=== PATIENT | male | born 1985 | race Caucasian/White ===

== ENCOUNTER → 2016-12-28 | Outpatient (CLI) | payer BC ==
[~2016-12-28] MED LIST: ACHD5005 PO; NAPR-243 PO; OMEP10CA4 PO; PANT40TA2 PO; SUCR1TAB36 PO; TRAM50TA2 PO
== END ==
LOC: PREOP 05:36
PROVIDERS: ATTEND Surgery
DX: Z01.818 Encounter for other preprocedural examination (principal); K21.9 Gastro-esophageal reflux disease without esophagitis

== ENCOUNTER 2017-01-02 08:25 | Day surgery (SDC) | payer BC ==
[~2017-01-02] VITALS: Ht 175.3 cm; Wt 95.3 kg
[~2017-01-02 08:25] MED LIST changes: +LACTATED RINGERS 1,000 ML IV ONE
[2017-01-02 08:30] VITALS: BP 133/94
--- OUTSIDE RECORDS SUMMARY | 2017-01-02 08:33 | XMS REPORT | Continuity of Care Document ---
Author Author [employer] Organization [employer] Address Unknown Phone Unavailable Care Team Providers Care Feller Seam Operator Name Role Phone [employer] Unavailable Unavailable Problems Medications Allergies, Adverse Reactions, Alerts Immunizations Results Vital Signs Encounters Procedures Plan of Care Social History Assessment and Plan Family History Value Date Source Advance Directives Order Name Results Value Date Source
--- OUTSIDE RECORDS SUMMARY | 2017-01-02 08:34 | XMS REPORT ---
Author Author LILIANA LEONARDO Organization [facility] Address [address] [place] [address] Care Team Providers Care Skilled Nursing Facilities Professional Name Role Phone LILIANA LEONARDO Unavailable PROBLEMS Type Condition ICD9-CM Code [id number] Code Onset Dates Condition Status SNOMED Code Problem Reflux gastritis K29.60 Active [id number] ALLERGIES Substance Reaction Event Type Date Status N.K.D.A. Unknown Non Drug Allergy Feb, Unknown SOCIAL HISTORY No smoking Hx information available PLAN OF CARE Activity Details Follow Up prn Reason: VITAL SIGNS Height 69 in 2016-02-21 Weight 214.0 lbs 2016-02-21 Temperature 97.7 degrees Fahrenheit 2016-02-21 Heart Rate 76 bpm 2016-02-21 Respiratory Rate 18 2016-02-21 BMI 31.60 kg/m2 2016-02-21 Blood pressure systolic 132 mmHg 2016-02-21 Blood pressure diastolic 84 mmHg 2016-02-21 MEDICATIONS Medication Instructions Dosage Frequency Start Date End Date Duration Status Carafate 1 GM Orally Twice a day 1 tablet on an empty stomach 12h Active Protonix 40 MG Orally Once a day 1 tablet 24h Active RESULTS No Results PROCEDURES Procedure Date Ordered Related Diagnosis Body Site Office Visit, Est Pt., Level 3 Feb 21, 2016 IMMUNIZATIONS No Known Immunizations
--- OUTSIDE RECORDS SUMMARY | 2017-01-02 08:34 | XMS REPORT ---
Author Author CHRISTY JAMES Organization [employer] Address Unknown Phone Unavailable Care Team Providers Care Strong Nitric Operator Name Role Phone CHRISTY JAMES CP Unavailable Allergies, Adverse Reactions, Alerts Substance Reaction Event Type N.K.D.A. Info Not Available Non Drug Allergy Problems Problem Type Condition Code Onset Dates Condition Status Assessment Gastroenteritis K52.9 Active Medications Medication Code System Code Instructions Start Date End Date Status Dosage Ranitidine HCl [facility] [address]-72 150 MG Orally Once a day 1 capsule at bedtime Zofran [facility] [address]-43 4 MG Orally every 8 hours, PRN Nov 22, 2015 1 tablet Procedures Procedure Coding System Code Date Office Visit, Est Pt., Level 3 CPT-4 43562 Nov 22, 2015 Vital Signs Date/Time: Nov 22, 2015 Cardiac Monitoring Heart Rate 60 bpm Weight 205.0 lbs Height 69 in BMI 30.27 Index Blood Pressure Diastolic 84 mmHg Blood Pressure Systolic 126 mmHg Results No Known Results Summary Purpose [employer] Submission
[2017-01-02] MEDS ORDERED: LACTATED RINGERS 1,000 ML IV STA (08:35)
--- OUTSIDE RECORDS SUMMARY | 2017-01-02 08:38 | XMS REPORT ---
Author Author MARCI MCCONNELL Organization [employer] Address Unknown Phone Unavailable Care Team Providers Care Pm Technician Name Role Phone MARCI MCCONNELL CP Unavailable Allergies, Adverse Reactions, Alerts Substance Reaction Event Type N.K.D.A. Info Not Available Non Drug Allergy Problems Problem Type Condition Code Onset Dates Condition Status Assessment Left foot pain M79.672 Active Assessment Reflux gastritis K29.60 Active Problem Reflux gastritis K29.60 Active Medications Medication Code System Code Instructions Start Date End Date Status Dosage Ranitidine HCl [facility] [address]-03 150 MG Orally Once a day 1 capsule at bedtime Omeprazole [facility] [address]-85 10 MG Orally Once a day Dec 06, 2015 1 capsules TraMADol HCl ER [facility] [address]-72 100 MG Orally BID Dec 06, 2015 1 tablet Procedures Procedure Coding System Code Date Office Visit, Est Pt., Level 4 CPT-4 16586 Dec 06, 2015 X-RAY EXAM OF FOOT CPT-4 01353 Dec 06, 2015 Vital Signs Date/Time: Dec 06, 2015 Cardiac Monitoring Heart Rate 70 bpm Weight 206 lbs Height 69 in BMI 30.42 Index Blood Pressure Diastolic 80 mmHg Blood Pressure Systolic 110 mmHg Results No Known Results Summary Purpose [employer] Submission
--- OUTSIDE RECORDS SUMMARY | 2017-01-02 08:40 | XMS REPORT | Continuity of Care Document ---
Author Author [facility] Organization [facility] Address Unknown Phone Unavailable Allergies Active Description Code Type Severity Reaction Onset Reported/Identified Relationship to Patient Clinical Status Yes No Known Drug Allergies [id number] Drug Allergy Unknown N/ A 01/03/2016 Medications Problems Date Dx Coded Attending Type Code Diagnosis Diagnosed By 06/11/2009 597.80 URETHRITIS, UNSPECIFIED 06/11/2009 LARRY PERKINS DO 597.80 URETHRITIS, UNSPECIFIED 06/11/2009 FEDE ABREU APRN 597.80 URETHRITIS, UNSPECIFIED 06/11/2009 LARRY PERKINS DO 597.80 URETHRITIS, UNSPECIFIED 09/20/2009 719.41 PAIN IN JOINT, SHOULDER REGION 09/20/2009 LARRY PERKINS DO 719.41 PAIN IN JOINT, SHOULDER REGION 09/20/2009 FEDE ABREU APRN 719.41 PAIN IN JOINT, SHOULDER REGION 09/20/2009 LARRY PERKINS DO 719.41 PAIN IN JOINT, SHOULDER REGION 10/14/2009 726.10 DISORDERS OF BURSAE AND TENDONS IN SHOULDER REGION, UNSPECIFIED 10/14/2009 LARRY PERKINS DO 726.10 DISORDERS OF BURSAE AND TENDONS IN SHOULDER REGION, UNSPECIFIED 10/14/2009 FEDE ABREU APRN 726.10 DISORDERS OF BURSAE AND TENDONS IN SHOULDER REGION, UNSPECIFIED 10/14/2009 LARRY PERKINS DO 726.10 DISORDERS OF BURSAE AND TENDONS IN SHOULDER REGION, UNSPECIFIED 09/19/2010 782.0 DISTURBANCE OF SKIN SENSATION 09/19/2010 LARRY PERKINS DO 782.0 DISTURBANCE OF SKIN SENSATION 09/19/2010 FEDE ABREU APRN 782.0 DISTURBANCE OF SKIN SENSATION 09/19/2010 LARRY PERKINS DO 782.0 DISTURBANCE OF SKIN SENSATION 09/25/2010 Ot 724.2 LUMBAGO 03/07/2011 110.5 DERMATOPHYTOSIS OF THE BODY 03/07/2011 564.00 UNSPECIFIED CONSTIPATION 03/07/2011 LARRY PERKINS DO K 110.5 DERMATOPHYTOSIS OF THE BODY 03/07/2011 PALLAVI PERKINS DOA K 564.00 UNSPECIFIED CONSTIPATION 03/07/2011 FEDE ABREU APRN 110.5 DERMATOPHYTOSIS OF THE BODY 03/07/2011 FEDE ABREU APRN 564.00 UNSPECIFIED CONSTIPATION 03/07/2011 LARRY PERKINS DO K 110.5 DERMATOPHYTOSIS OF THE BODY 03/07/2011 LARRY PERKINS DO K 564.00 UNSPECIFIED CONSTIPATION 05/03/2011 Ot 924.11 CONTUSION OF KNEE 05/03/2011 Ot 959.7 LOWER LEG INJURY NOS 05/03/2011 Ot E000.8 OTHER EXTERNAL CAUSE STATUS 05/03/2011 Ot E007.6 ACTIVITIES INVOLVING BASKETBALL 05/03/2011 Ot E849.4 ACCID IN RECREATION AREA 05/03/2011 Ot E888.9 FALL NOS 06/14/2011 844.9 SPRAIN/STRAIN KNEE/LEG 06/14/2011 LARRY PERKINS DO K 844.9 SPRAIN/STRAIN KNEE/LEG 06/14/2011 FEDE ABREU APRN R 844.9 SPRAIN/STRAIN KNEE/LEG 06/14/2011 LARRY PERKINS DO K 844.9 SPRAIN/STRAIN KNEE/LEG 07/26/2012 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 07/26/2012 724.5 BACKACHE UNSPECIFIED 07/26/2012 LARRY PERKINS DO K 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 07/26/2012 LARRY PERKINS DO K 724.5 BACKACHE UNSPECIFIED 07/26/2012 FEDE ABREU APRN R 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 07/26/2012 FEDE ABREU APRN R 724.5 BACKACHE UNSPECIFIED 07/26/2012 PALLAVI PERKINS DOA K 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 07/26/2012 PALLAVI PERKINS DOA K 724.5 BACKACHE UNSPECIFIED 11/04/2012 PALLAVI PERKINS DOA K 682.5 CELLULITIS AND ABSCESS OF BUTTOCK 11/04/2012 PALLAVI PERKINS DOA K 685.1 PILONIDAL CYST WITHOUT ABSCESS 11/04/2012 FEDE ABREU APRN 682.5 CELLULITIS AND ABSCESS OF BUTTOCK 11/04/2012 LOIS MEJIA, FEDE R 685.1 PILONIDAL CYST WITHOUT ABSCESS 11/04/2012 LARRY PERKINS DO K 682.5 CELLULITIS AND ABSCESS OF BUTTOCK 11/04/2012 LARRY PERKINS DO K 685.1 PILONIDAL CYST WITHOUT ABSCESS 11/14/2013 LOIS PRODUCTION CLERKS SUPERVISOR, FEDE R 723.1 CERVICALGIA 11/14/2013 LOIS PRODUCTION CLERKS SUPERVISOR, FEDE R 724.1 PAIN IN THORACIC SPINE 11/14/2013 LARRY PERKINS DO K 723.1 CERVICALGIA 11/14/2013 LARRY PERKINS DO K 724.1 PAIN IN THORACIC SPINE 12/24/2013 FEDE ABREU PRODUCTION CLERKS SUPERVISOR Ot 723.1 CERVICALGIA 12/24/2013 FEDE ABREU PRODUCTION CLERKS SUPERVISOR Ot V57.1 PHYSICAL THERAPY NEC 01/23/2014 LARRY PERKINS DO K 530.81 GERD 12/31/2015 MARITO MOLINA DO Ot K21.9 GASTRO-ESOPHAGEAL REFLUX DISEASE WITHOUT 12/31/2015 MARITO MOLINA DO Ot Z01.818 ENCOUNTER FOR OTHER PREPROCEDURAL EXAMIN 01/03/2016 MARITO MOLINA DO Ot K21.9 GASTRO-ESOPHAGEAL REFLUX DISEASE WITHOUT 01/03/2016 MARITO MOLINA DO Ot Z01.818 ENCOUNTER FOR OTHER PREPROCEDURAL EXAMIN 01/04/2016 MARITO MOLINA DO Ot K21.9 GASTRO-ESOPHAGEAL REFLUX DISEASE WITHOUT 01/04/2016 MARITO MOLINA DO Ot Z01.818 ENCOUNTER FOR OTHER PREPROCEDURAL EXAMIN 01/04/2016 MARITO MOLINA DO Ot K21.9 GASTRO-ESOPHAGEAL REFLUX DISEASE WITHOUT 01/04/2016 MARITO MOLINA DO Ot Z01.818 ENCOUNTER FOR OTHER PREPROCEDURAL EXAMIN 01/04/2016 MARITO MOLINA DO Ot K21.9 GASTRO-ESOPHAGEAL REFLUX DISEASE WITHOUT 01/04/2016 MARITO MOLINA DO Ot Z01.818 ENCOUNTER FOR OTHER PREPROCEDURAL EXAMIN 01/04/2016 MARITO MOLINA DO Ot K29.60 OTHER GASTRITIS WITHOUT BLEEDING 01/04/2016 MARITO MOLINA DO Ot K44.9 DIAPHRAGMATIC HERNIA WITHOUT OBSTRUCTION 01/05/2016 MARITO MOLINA DO Ot K29.60 OTHER GASTRITIS WITHOUT BLEEDING 01/05/2016 MOLINA DO MARITO Duarte Ot K44.9 DIAPHRAGMATIC HERNIA WITHOUT OBSTRUCTION 01/09/2016 MOLINA MARITO Duarte Ot K21.9 GASTRO-ESOPHAGEAL REFLUX DISEASE WITHOUT 01/09/2016 TRACY ALICEA MARITO Duarte Ot Z01.818 ENCOUNTER FOR OTHER PREPROCEDURAL EXAMIN 12/29/2016 MOLINAMARITO BROOKS DO Ot K21.9 GASTRO-ESOPHAGEAL REFLUX DISEASE WITHOUT 12/29/2016 MOLINAMARITO BROOKS DO Ot Z01.818 ENCOUNTER FOR OTHER PREPROCEDURAL EXAMIN Procedures Code [place] [address] THERAPUTIC INJ SQ/IM 07/26/2012 J1885 TORADOL INJ 07/26 J1885 TORADOL PER 15 MG, INJ KETOROLAC TROMETHAMINE 07/26/2012 66604 CULTURE WOUND (AEROBIC) 11/04/2012 90668 XRAY THORACIC SPINE 2 VIEWS 11/17/2013 96979 [employer] 2013 PHYSICAL PHYSICAL THERAPY, [facility] 11/18/2013 Results Encounters ACCT No. Visit Date/Time Discharge Status Pt. Type Provider Facility Loc./Unit Complaint [id number] 12/28/2016 05:36:00 2016 23:59:59 CLS Outpatient MARITO MOLINA DO [facility] PREOP EGD [id number] 01/04/2016 10:50:00 2015 13:00:00 DIS Outpatient MARITO MOLINA DO [facility] SDC REFLULX [id number] 01/03/2016 10:30:00 2015 23:59:59 CLS Outpatient MARITO MOLINA DO [facility] PREOP REFLUX [id number] 12/24/2013 11:15:00 2013 13:09:00 DIS Outpatient FEDE ABREU APRN [facility] REHAB CERVICALGIA [id number] 01/02/2017 11:30:00 PEN Preadmit MARITO MOLINA DO [facility] ENDO REFLUX, GERD [id number] 05/03/2011 10:01:00 Document Registration [id number] 09/25/2010 11:14:00 Document Registration [id number] 01/23/2014 09:49:00 01/23/2014 23: 59:59 CLS Outpatient LARRY PERKINS DO [id number] 11/14/2013 11:31:00 11/14/2013 23: 59:59 CLS Outpatient FEDE ABREU APRN [id number] 11/04/2012 13:45:00 11/04/2012 23: 59:59 CLS Outpatient LARRY PERKINS DO [id number] 07/26/2012 12:29:00 Document Registration
[2017-01-02] MEDS ORDERED: proPOfol 200 MG/20 ML (DIPRIVAN) VIAL IV ONE (08:43)
[2017-01-02] MEDS ORDERED: MIDAZOLAM 2 MG/2 ML (VERSED) VIAL ONE (08:44)
--- NOTE | 2017-01-02 08:56 | Progress Note-Pre Operative ---
Pre-Operative Progress Note H&P Reviewed The H&P was reviewed, patient examined and no changes noted. Date Seen by Provider: Jan 02, 2017 Time Seen by Provider: 08:56 Date H&P Reviewed: Jan 02, 2017 Time H&P Reviewed: 08:56 Pre-Operative Diagnosis: gerd, reflux esophagitis MARITO MOLINA DO Jan 02, 2017 08:56
[2017-01-02] MEDS ORDERED: HURRICAINE EXT TUBE (BENZOCAINE) XX PRN (09:00)
--- NOTE | 2017-01-02 09:26 | Progress Note-Post Operative ---
Post-Operative Progess Note Surgeon (s)/Avionics Integration Engineer (s) Surgeon MARITO MOLINA DO Avionics Integration Engineer: na Pre-Operative Diagnosis gerd, reflux esophagitis Post-Operative Diagnosis hiatal hernia, reflux esophagitis Procedure & Operative Findings Date of Procedure 01/02/17 Procedure Performed/Findings egd c biopsies Anesthesia Type per utilization review specialist Estimated Blood Loss Estimated blood loss (mL): none Specimens/Packing Specimens Removed antrum, ge junction MARITO MOLINA DO Jan 02, 2017 09:26
--- NOTE | 2017-01-02 09:29 | Discharge Inst-Simple/Standard ---
Discharge Inst-Standard Patient Instructions/Follow Up Plan of Care/Instructions/FU: 2 weeks [place]on Activity as Tolerated: Yes Discharge Diet: Regular Diet (small frequent meals) MARITO MOLINA DO Jan 02, 2017 09:29
[2017-01-02 09:35] VITALS: BP 113/71
[2017-01-02 10:05] VITALS: BP 129/85
[2017-01-02 10:09] VITALS: BP 129/85
--- NOTE | 2017-01-03 06:20 | OPERATIVE REPORT ---
DATE OF SERVICE: 01/02/2017 PREOPERATIVE DIAGNOSES: 1. Gastroesophageal reflux disease. 2. Reflux esophagitis. POSTOPERATIVE DIAGNOSES: 1. Hiatal hernia. 2. Reflux esophagitis. PROCEDURE: EGD with biopsies. SURGEON: Marito Davies DO ANESTHESIA: Per GLAZING DEPARTMENT SUPERVISOR. ESTIMATED BLOOD LOSS: None. COMPLICATIONS: None. SPECIMENS: Biopsy of the antrum and GE junction. INDICATIONS: The patient is a 31-year-old male with history of GERD and reflux esophagitis. He was recommended to have repeat EGD. He understands risks and benefits and wished to proceed with procedure. Consent was signed in the chart. PROCEDURE: The patient was taken to the endoscopy suite, placed in the left lateral recumbent position. Timeout was performed. Scope was inserted in mouth, down the esophagus, stomach and into the duodenum without difficulty. There were no polyps, masses or ulcerations within the duodenum. The scope was slowly retracted back into the stomach, which was further insufflated. No polyps, masses or ulcerations. No significant erythematous changes. Biopsy of the antrum was obtained. The scope was retroflexed noting a hiatal hernia. No other pathology noted. The scope was returned to its normal position, slowly withdrawn back into the distal esophagus. There were some erythematous changes consistent with reflux esophagitis. Biopsies of the GE junction were obtained. The scope was then slowly retracted back . RECOMMENDATIONS: The patient to continue on Protonix 40 mg daily and Carafate 1 gram four times a day. The patient will follow up on biopsies in approximately 2 to 3 weeks. Further recommendations pending biopsy results. Job ID: [id number] DocumentID: [id number] Dictated Date: 01/02/2017 09:33:01 Archives Technician Date: 01/02/2017 19:47:25 Dictated By: MARITO DAVIES DO
== END 2017-01-02 10:15 | disposition home or self-care (01) ==
LOC: ENDO 08:25
PROVIDERS: ATTEND Surgery
DX: K21.0 Gastro-esophageal reflux disease with esophagitis (principal); K44.9 Diaphragmatic hernia without obstruction or gangrene; E66.9 Obesity, unspecified; Z68.31 Body mass index [BMI] 31.0-31.9, adult

== ENCOUNTER 2017-05-12 17:23 | Emergency (ER) | payer BC ==
[~2017-05-12] VITALS: Ht 175.3 cm; Wt 95.3 kg
[~2017-05-12 17:23] MED LIST changes: -LACTATED RINGERS 1,000 ML IV ONE
--- NOTE | 2017-05-12 19:44 | Diagnostic Imaging Report ---
EXAM: SHOULDER, RIGHT, 3 VIEWS INDICATION: Fall. Right shoulder pain. COMPARISON: None. FINDINGS: No fracture or malalignment. Soft tissue shadows are unremarkable. IMPRESSION: Negative right shoulder radiographs. Dictated by: Dictated on workstation # [id number]
--- NOTE | 2017-05-12 19:57 | ED Upper Extremity ---
General Chief Complaint: Upper Extremity Stated Complaint: RIGHT SHOULDER PAIN Nursing Triage Note: PT REPORTS HE WAS PLAYING WITH HIS KIDS AND INJURED R SHOULDER AROUND 1600 TODAY. Nursing Sepsis Screen: No Definite Risk History of Present Illness Date Seen by Provider: May 12, 2017 Time Seen by Provider: 19:15 Initial Comments 31-year-old male reports he was playing sports with his children in the yard, he was running when he tripped, landing directly onto his right shoulder. He denies any previous histories of injuries to his shoulder. He had no medication prior to arrival for pain. He is rating his pain 7/10. Onset: just prior to arrival Pain/Injury Location: right shoulder Method of Injury: sports injury Modifying Factors: Improves With Immobilization, Improves With Rest Allergies and Home Medications Allergies Coded Allergies: No Known Drug Allergies (Unverified , 01/03/16) Home Medications Pantoprazole Sodium 40 Mg Tablet.dr, 40 MG PO DAILY Patient to take Protonix 40 mg bid for 2 weeks and then once a day Prescribed by: ANUPAMA MORENO on 01/04/16 1150 Sucralfate 1 Gm Tablet, 1 GM PO QID Prescribed by: ANUPAMA MORENO on 01/04/16 1150 Patient Home Medication List Home Medication List Reviewed: Yes Constitutional: no symptoms reported, see HPI Musculoskeletal: see HPI, joint pain (right shoulder), muscle pain (right shoulder) All Other Systems Reviewed Negative Unless Noted: Yes Past Npqfpdu-Qwbnyz-Icoikc Hx Patient Social History Alcohol Use: Occasionally Uses Recreational Drug Use: No Smoking Status: Former Smoker Type Used: Smokeless Tobacco Former Smoker, Quit: Apr 24, 2007 Recent Foreign Travel: No Contact w/Someone Who Travel: No Recent Infectious Disease Expo: No Recent Hopitalizations: No Physical Abuse: No Sexual Abuse: No Mistreated: No Fear: No Immunizations Up To Date Date of Influenza Vaccine: Dec 22, 2016 Seasonal Allergies Seasonal Allergies: No Surgeries History of Surgeries: Yes (EARDRUM) Respiratory History of Respiratory Disorde: No Cardiovascular History of Cardiac Disorders: No Neurological History of Neurological Disord: No Reproductive System Hx Reproductive Disorders: No Sexually Transmitted Disease: Yes HIV/AIDS: No Genitourinary History of Genitourinary Disor: No Gastrointestinal History of Gastrointestinal Di: Yes Gastrointestinal Disorders: Gastroesophageal Reflux, Ulcer Musculoskeletal History of Musculoskeletal Dis: Yes Musculoskeletal Disorders: Chronic Back Pain Endocrine History of Endocrine Disorders: No HEENT Loss of Vision: Denies Hearing Impairment: Denies Cancer History of Cancer: No Psychosocial History of Psychiatric Problem: No Suicide Risk Score: 0 Integumentary History of Skin or Integumenta: No Blood Transfusions History of Blood Disorders: No Adverse Reaction to a Blood Tr: No (N/A) Reviewed Nursing Assessment Reviewed/Agree w Nursing PMH: Yes Physical Exam Vital Signs Vital Signs - First Documented 05/12/17 18:24 Temp 98.2 Pulse 78 Resp 16 B/P (MAP) 146/103 (117) Pulse Ox 98 O2 Delivery Room Air Capillary Refill : Less Than 3 Seconds General Appearance: WD/WN, no apparent distress Cardiovascular: normal peripheral pulses, regular rate, rhythm, no murmur Respiratory: chest non-tender, lungs clear, normal breath sounds Gastrointestinal: normal bowel sounds, non tender, soft Shoulder: bone tenderness (A.C. Joint), limited ROM (secondary to pain), pain, soft tissue tenderness Neurologic/Tendon: normal sensation, normal motor functions, normal tendon functions Neurologic/Psychiatric: no motor/sensory deficits, alert, normal mood/affect, oriented x 3 Comments Right shoulder active elevation to 90, passive elevation 120. Resisted abduction V/V. negative apprehension, negative [place]'s, external rotators strength V/V. neurovascular status intact right upper extremity symmetric with the left. Progress/Results/Core Measures Results/Orders My Orders Orders - SULY REDMOND Shoulder, Right, 3 Views (05/12/17 19:00) Tramadol Tablet (Ultram Tablet) (05/12/17 19:41) Rx-Tramadol Hcl (Rx-Ultram) (05/12/17 19:58) Vital Signs/I&O Vital Sign - Last 12Hours 05/12/17 18:24 Temp 98.2 Pulse 78 Resp 16 B/P (MAP) 146/103 (117) Pulse Ox 98 O2 Delivery Room Air Blood Pressure Mean: 117 Progress Note : Time: 19:15 Progress Note Initial evaluation completed, recommended x-rays of the right shoulder and reevaluation. 1930 sling applied to left upper extremity. Discharge instructions and return precautions reviewed with the patient. Departure Impression Impression: Primary Impression: Acromioclavicular separation, type 1 Qualified Codes: S43.101A - Unspecified dislocation of right acromioclavicular joint, initial encounter Additional Impression: Right shoulder pain Qualified Codes: M25.511 - Pain in right shoulder Disposition: 01 HOME, SELF-CARE Condition: Improved Departure-Patient Inst. Decision time for Depature: 19:45 Referrals: NO,LOCAL PHYSICIAN (PCP) Primary Care Physician Patient Instructions: How to Use a Shoulder Sling, Shoulder Add. Discharge Instructions: Sling for comfort for the next 7-10 days. Alternate between ibuprofen 600 mg and Tylenol 650 mg every 4 hours for pain. Ice to right shoulder 20 minutes every 2 hours. Remove sling 3-4 times daily and do gentle range of motion exercises as instructed. Follow-up with your primary care provider in 5-10 days if symptoms are not improving for orthopedic referral. Return to emergency department for new injuries or problems. All discharge instructions reviewed with patient and/or family. Voiced understanding. SULY REDMOND May 12, 2017 19:57
[2017-05-12] MEDS ORDERED: RX-TRAMADOL 50 MG (ULTRAM) TAB PPK#4 PO STA (19:58)
[2017-05-12 20:07] VITALS: BP 146/103
--- OUTSIDE RECORDS SUMMARY | 2017-05-13 04:40 | XMS REPORT | Continuity of Care Document ---
Author Author [facility] Organization [facility] Address Unknown Phone Unavailable Allergies Active Description Code Type Severity Reaction Onset Reported/Identified Relationship to Patient Clinical Status Yes No Known Drug Allergies [id number] Drug Allergy Unknown N/A 01/03/2016 Medications There is no data. Problems Date Dx Coded Attending Type Code Diagnosis Diagnosed By 06/11/2009 597.80 URETHRITIS, UNSPECIFIED 06/11/2009 LARRY PERKINS DO 597.80 URETHRITIS, UNSPECIFIED 06/11/2009 FEDE ABREU APRN 597.80 URETHRITIS, UNSPECIFIED 06/11/2009 LARRY PERKINS DO 597.80 URETHRITIS, UNSPECIFIED 09/20/2009 719.41 PAIN IN JOINT , SHOULDER REGION 09/20/2009 LARRY PERKINS DO 719.41 [...] 564.00 UNSPECIFIED CONSTIPATION 03/07/2011 FEDE ABREU APRN R 110.5 DERMATOPHYTOSIS OF THE BODY 03/07/2011 FEDE ABREU APRN R 564.00 UNSPECIFIED CONSTIPATION 03/07/2011 LARRY PERKINS DO [...] ABREU APRN R 844.9 SPRAIN/STRAIN KNEE/LEG 06/14/2011 PALLAVI PERKINS DOA K 844.9 SPRAIN/STRAIN KNEE/LEG 07/26/2012 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 07/26/2012 724.5 BACKACHE UNSPECIFIED 07/26/2012 PALLAVI PERKINS DOA K 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 07/26/2012 PALLAVI PERKINS DOA K 724.5 BACKACHE UNSPECIFIED 07/26/2012 FEDE ABREU [...] CELLULITIS AND ABSCESS OF BUTTOCK 11/04/2012 LOIS VASCULAR PHYSICIAN, FEDE R 685.1 PILONIDAL CYST WITHOUT ABSCESS 11/04/2012 LARRY PERKINS DO K 682.5 CELLULITIS AND ABSCESS OF BUTTOCK 11/04/2012 LARRY PERKINS DO K 685.1 PILONIDAL CYST WITHOUT ABSCESS 11/14/2013 LOIS VASCULAR PHYSICIAN, FEDE R 723.1 CERVICALGIA 11/14/2013 LOIS VASCULAR PHYSICIAN, FEDE R 724.1 PAIN IN THORACIC SPINE 11/14/2013 LARRY PERKINS DO K 723.1 CERVICALGIA 11/14/2013 PALLAVI PERKINS DOA K 724.1 PAIN IN THORACIC SPINE 12/24/2013 FEDE ABREU VASCULAR PHYSICIAN Ot 723.1 CERVICALGIA 12/24/2013 FEDE ABREU VASCULAR PHYSICIAN Ot V57.1 PHYSICAL THERAPY NEC 01/23/2014 LARRY [...] Ot K44.9 DIAPHRAGMATIC HERNIA WITHOUT OBSTRUCTION 01/05/2016 MOLINA DO, MARITO D Ot K29.60 OTHER GASTRITIS WITHOUT BLEEDING 01/05/2016 MOLINA DO, MARITO D Ot K44.9 DIAPHRAGMATIC HERNIA WITHOUT OBSTRUCTION 01/09/2016 MOLINA DO, MARITO D Ot K21.9 GASTRO-ESOPHAGEAL REFLUX DISEASE WITHOUT 01/09/2016 MOLINA DO, MARITO D Ot Z01.818 ENCOUNTER FOR OTHER PREPROCEDURAL EXAMIN 12/29/2016 MOLINA DO, MARITO D Ot K21.9 GASTRO-ESOPHAGEAL REFLUX DISEASE WITHOUT 12/29/2016 MOLINA DO, MARITO D Ot Z01.818 ENCOUNTER FOR OTHER PREPROCEDURAL EXAMIN 01/02/2017 MOLINA DO, MARITO D Ot E66.9 OBESITY, UNSPECIFIED 01/02/2017 MOLINA DO, MARITO D Ot K21.0 GASTRO-ESOPHAGEAL REFLUX DISEASE WITH ES 01/02/2017 MOLINA DO, MARITO D Ot K44.9 DIAPHRAGMATIC HERNIA WITHOUT OBSTRUCTION 01/02/2017 MOLINA DO, MARITO D Ot Z68.31 BODY MASS INDEX (BMI) 31.0-31.9, ADULT 01/03/2017 MOLINA DO, MARITO D Ot E66.9 OBESITY, UNSPECIFIED 01/03/2017 MOLINA DO, MARITO D Ot K21.0 GASTRO-ESOPHAGEAL REFLUX DISEASE WITH ES 01/03/2017 MOLINA DO, MARITO D Ot K44.9 DIAPHRAGMATIC HERNIA WITHOUT OBSTRUCTION 01/03/2017 MOLINA DO, MARITO D Ot Z68.31 BODY MASS INDEX (BMI) 31.0-31.9, ADULT 01/09/2017 MOLINA DO MARITO D Ot E66.9 OBESITY, UNSPECIFIED 01/09/2017 MOLINA DO, MARITO D Ot K21.0 GASTRO-ESOPHAGEAL REFLUX DISEASE WITH ES 01/09/2017 MOLINA DO, MARITO D Ot K44.9 DIAPHRAGMATIC HERNIA WITHOUT OBSTRUCTION 01/09/2017 MOLINA DO, MARITO D Ot Z68.31 BODY MASS INDEX (BMI) 31.0-31.9, ADULT 01/15/2017 MOLINA DO, MARITO D Ot E66.9 OBESITY, UNSPECIFIED 01/15/2017 MOLINA DO, MARITO D Ot K21.0 GASTRO-ESOPHAGEAL REFLUX DISEASE WITH ES 01/15/2017 MOLINA DO, MARITO D Ot K44.9 DIAPHRAGMATIC HERNIA WITHOUT OBSTRUCTION 01/15/2017 MARITO MOLINA DO Ot Z68.31 BODY MASS INDEX (BMI) 31.0-31.9, ADULT Procedures Code Description [place] [address] THERAPUTIC INJ SQ/IM 07/26/2012 J1885 TORADOL INJ 07/26/2012 J1885 TORADOL PER 15 MG, INJ KETOROLAC TROMETHAMINE 07/26/2012 50293 CULTURE WOUND (AEROBIC) 11/04/2012 50378 XRAY THORACIC SPINE 2 VIEWS 11/17/2013 49253 AMERITOX 11/17/2013 PHYSICAL PHYSICAL THERAPY, [facility] 11/18/2013 Results Test Result Range Drug Screen + ETOH - 07/25/16 09:55 [employer] Margoth Jenkins Donor ID By Employer Representitive Ethanol, Urine <10.00 mg/dL 20.00-80.00 Location [employer] Reason For Test Pre-Employment Temperature In Range YES Deg F 90.00-100.00 Urine Amphetamines NEGATIVE Urine Barbiturates NEGATIVE Urine Benzodiazepines NEGATIVE Urine Cocaine NEGATIVE Urine MDMA NEGATIVE Urine Methadone NEGATIVE Urine Methamphetamines NEGATIVE Urine Opiates NEGATIVE Urine Oxycodone NEGATIVE Urine PCP NEGATIVE Urine THC Metabolite NEGATIVE Drug Screen + ETOH - 12/28/16 14:20 Drug Screen + ETOH - 12/28/16 15:00 [employer] Flores Callahan Donor ID By Photo ID Ethanol, Urine <20.00 mg/dL 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 Visit Date/Time Discharge Status Pt. Type Provider Facility Loc./Unit Complaint [id number] 01/02/2017 08:25:00 01/02/2017 10:15:00 DIS Outpatient MARITO MOLINA DO [facility] ENDO REFLUX, GERD [id number] 12/28/2016 05:36:00 12/28/2016 23:59:59 CLS Outpatient MARITO MOLINA DO [facility] PREOP EGD [id number] 01/04/2016 10:50:00 01/04/2016 13:00:00 DIS Outpatient MARITO MOLINA DO [facility] SDC REFLULX [id number] 01/03/2016 10:30:00 01/03/2016 23:59:59 CLS Outpatient MARITO MOLINA DO [facility] PREOP REFLUX [id number] 12/24/2013 11:15:00 12/24/2013 13:09:00 DIS Outpatient FEDE ABREU VASCULAR PHYSICIAN [facility] REHAB CERVICALGIA [id number] 05/03/2011 10:01:00 Document Registration [id number] 09/25/2010 11:14:00 Document Registration [id number] 12/24/2013 11:43:34 ACT Document Registration [id number] 04/16/2017 17:20:00 04/16/2017 23:59:59 CLS Outpatient [facility] [id number] 01/23/2014 09:49:00 01/23/2014 23:59:59 CLS Outpatient LARRY PERKINS DO [id number] 11/14/2013 11:31:00 11/14/2013 23:59:59 CLS Outpatient FEDE ABREU APRN [id number] 11/04/2012 13:45:00 11/04/2012 23:59:59 CLS Outpatient LARRY PERKINS DO [id number] 07/26/2012 12:29:00 Document Registration [id number] 12/28/2016 13:49:00 12/28/2016 23:59:00 DIS Outpatient UNLISTED, UNLISTED [id number] 11/03/2016 12:13:00 11/03/2016 23:59:00 DIS Outpatient SELF, PHY [id number] 07/25/2016 09:52:00 07/25/2016 23:59:00 DIS Outpatient UNLISTED, UNLISTED
--- OUTSIDE RECORDS SUMMARY | 2017-05-13 04:40 | XMS REPORT | Continuity of Care Document ---
Author Author [employer] Organization [employer] Address Unknown Phone Unavailable Care Team Providers Care Carver Hand Name Role Phone [employer] Unavailable Unavailable Problems Medications Allergies, Adverse Reactions, Alerts Immunizations Results Vital Signs Encounters Procedures Plan of Care Social History Assessment and Plan Family History Advance Directives Functional Status
== END 2017-05-12 20:07 | disposition home or self-care (01) ==
LOC: EDUNIT# 17:23 → ER 17:26
DX: S43.101A Unspecified dislocation of right acromioclavicular joint, initial encounter (principal); K21.9 Gastro-esophageal reflux disease without esophagitis; Z87.19 Personal history of other diseases of the digestive system; Z87.891 Personal history of nicotine dependence; W01.0XXA Fall on same level from slipping, tripping and stumbling without subsequent striking against object, initial encounter
CPT/HCPCS: 73030

== ENCOUNTER → 2020-03-18 | Outpatient (CLI) | payer SELFPAY ==
[~2020-03-18] MED LIST changes: -OMEP10CA4 PO; +OMEP10CA5 PO; -TRAM50TA2 PO; +TRM50T PO
--- NOTE | 2020-03-18 17:52 | Diagnostic Imaging Report ---
EXAMINATION: Magnetic resonance imaging of the left knee without intravenous contrast DATE: March 18, 2020. COMPARISON: None. INDICATION: 34-year-old male, left knee pain. TECHNIQUE: Multiplanar, multisequence non contrast enhanced MR imaging was accomplished. FINDINGS: MENISCI: The medial meniscus is intact. There is a longitudinal horizontal type tear involving the anterior horn, body and posterior horn of the lateral meniscus. LIGAMENTS AND TENDONS: The anterior and posterior cruciate ligaments are intact. The medial collateral ligament is intact. The iliotibial band, mid third lateral capsular ligament, fibular collateral ligament, biceps femoris tendon and conjoined tendon are intact. The quadriceps tendon and patella ligament are intact. JOINT: There is a 10 mm AP length, approximately 25-50% cartilage loss of the posterior weightbearing portion of the lateral femoral condyle cartilage with potential cartilage flap extending approximately 75% of the depth of the cartilage measuring 6 mm in length. The medial compartment cartilage is intact. The patellofemoral compartment cartilage is intact. There is no knee joint effusion, prominent synovitis, or intra-articular body. BONE: There is unremarkable bone marrow signal. Specifically, negative for fracture, osteomyelitis, osteonecrosis, or marrow replacing process. BURSAE AND SOFT TISSUES: No Bakers cyst. IMPRESSION: 1. Longitudinal horizontal type tear involving the anterior horn, body and posterior horn of the lateral meniscus. 2. Intact medial meniscus. 3. Intact anterior and posterior cruciate ligaments. Additional ligaments and tendons are intact. 4. Cartilage defect of the posterior weightbearing portion of the lateral femoral condyle measuring approximately 10 mm in AP length with probable cartilage flap measuring 6 mm in length extending 75% of the depth of the cartilage. The additional articular cartilage is intact. No knee joint effusion, prominent synovitis or identified intra-articular body. 5. No acute fracture, bone contusion or evidence of osteonecrosis. Dictated by: Dictated on workstation # [id number]
== END ==
LOC: RAD 15:30
PROVIDERS: ATTEND Nurse Practitioner
DX: M23.242 Derangement of anterior horn of lateral meniscus due to old tear or injury, left knee (principal); M23.252 Derangement of posterior horn of lateral meniscus due to old tear or injury, left knee
CPT/HCPCS: 73721